=== PATIENT | male | born 1990 | race Hispanic/Latino ===

== ENCOUNTER 2020-05-12 11:03 | Day surgery (SDC) | payer OTHER ==
[~2020-05-12 11:03] MED LIST: CELECOXIB 200 MG CAP PO NR; GABAPENTIN 300 MG CAP PO NR; LACTATED RINGERS 1,000 ML IV SCH; MAGNESIUM OXIDE 400 MG TAB PO SCH; MIDAZOLAM 2 MG/2 ML INJ IV NR
--- NOTE | 2020-05-12 11:49 | Anesthesia Day of Surgery ---
Anesthesia Day of Surgery - Day of Surgery Patient Examined: Yes Patient H&P Reviewed: Yes Patient is NPO: Yes
--- NOTE | 2020-05-12 11:49 | Anesthesia Consultation ---
Anesthesia Consult and Med Hx Date of service: 05/12/20 - Airway Anesthetic Teeth Evaluation: Good ROM Head & Neck: Adequate Mental/Hyoid Distance: Adequate Mallampati Class: Class III Intubation Access Assessment: Possibly Difficult - Pulmonary Exam CTA: Yes - Cardiac Exam Cardiac Exam: RRR - Pre-Operative Health Status ASA Pre-Surgery Classification: ASA1 Proposed Anesthetic Plan: General - Pulmonary Hx Respiratory Symptoms: No Hx Sleep Apnea: No (FLOR PRE SCREEN LOW RISK) - Cardiovascular System Hx Hypertension: No - Central Nervous System CVA: No Hx Psychiatric Problems: Yes (anxiety/depression) - Gastrointestinal Hx Gastroesophageal Reflux Disease: No - Endocrine Hx Renal Disease: No Hx Liver Disease: No Hx Insulin Dependent Diabetes: No Hx Non-Insulin Dependent Diabetes: No Hx Thyroid Disease: No - Other Systems Hx Obesity: No - Additional Comments Anesthesia Medical History Comments: No hx anesthetic complications.
[2020-05-12] MEDS ORDERED: ceFAZolin/STERILE WATER 2 GM/20 ML SYRINGE IV NR (12:08)
[2020-05-12] MEDS ORDERED: ONDANSETRON 4 MG/2 ML INJ ONE (12:16)
[2020-05-12] MEDS ORDERED: propofoL 200 MG/20 ML VIAL IV ONE (12:16)
[2020-05-12] MEDS ORDERED: GLYCOPYRROLATE 0.4 MG/2 ML INJ ONE (12:16)
[2020-05-12] MEDS ORDERED: dexAMETHasone 20 MG/5 ML VIAL ONE (12:16)
[2020-05-12] MEDS ORDERED: ePHEDrine SULFATE 50 MG/1 ML INJ ONE (12:16)
[2020-05-12] MEDS ORDERED: HYDROmorphone 1 MG/1 ML INJ ONE ×2 (12:16→13:52)
[2020-05-12] MEDS ORDERED: PHENYLEPHRINE/NS 1,000 MCG/10 ML SYRINGE (OR USE) IV ONE (12:16)
[2020-05-12] MEDS ORDERED: LIDOCAINE MPF (2%) 20 MG/1 ML VIAL 5 ML ONE (12:16)
[2020-05-12] MEDS ORDERED: NEOMY 40 MG/POLYMYXIN B 200,000 UNITS/ML (GU) AMPULE IR ONE ×2 (13:03→13:22)
[2020-05-12] MEDS ORDERED: LIDOCAINE (1%) 10 MG/1 ML VIAL 20 ML MDV ONE (13:03)
[2020-05-12] MEDS ORDERED: BACITRACIN ZINC OINT 28.4 GM TP ONE (13:03)
[2020-05-12] MEDS ORDERED: BUPIVACAINE/PF (0.25%) 2.5 MG/ML 30 ML VIAL INFILTRATI ONE (13:03)
[2020-05-12] MEDS ORDERED: SODIUM CHLORIDE 0.9% IRR 1,500 ML BOTTLE IR ONE (13:23)
[2020-05-12] MEDS: HYDROmorphone 1 MG/1 ML INJ IV PRN ×2 (14:50→15:01)
--- NOTE | 2020-05-12 14:54 | Post Operative Note ---
Date of procedure: 05/12/20 Pre-op diagnosis: left testicular mass Post-op diagnosis: same Findings: mass Procedure: left radical orch Anesthesia: GETA Surgeon: MARCI CAIN Estimated blood loss: minimal Pathology: list (left rad orch) Specimen disposition: to lab Condition: stable Disposition: PACU
--- NOTE | 2020-05-12 14:55 | Discharge Summary ---
Short Stay Discharge Plan Activity: other (no straining ) Weight Bearing Status: Full Weight Bearing Diet: regular Wound: open to air, keep clean and dry Special Instructions: other (ice in rr ) Follow up with: DAVEY PIERSON JR., MD [Primary Care Provider] - 7 Days MARCI CAIN MD [Staff Physician] - 7 Days Forms: Outpatient Surgery DC Inst.
--- NOTE | 2020-05-12 15:23 | Operative Report ---
PREOPERATIVE DIAGNOSIS: Mass, left testicle with the testicle totally atrophied with a huge cystic mass within it. POSTOPERATIVE DIAGNOSIS: Mass, left testicle with the testicle totally atrophied with a huge cystic mass within it. PROCEDURE: Left radical orchiectomy. SURGEON: Dr. Connolly. ANESTHESIA: General. FINDINGS: This is a gentleman who presents with a large left enlarging mass, left testicle. His markers were okay, but it looks like the central aspect of the testis was replaced by a cystic mass. It may just be cystic changes. He is 30. He now presents for surgery. DESCRIPTION OF PROCEDURE: The patient was brought to the outpatient operating table. Following induction of anesthesia, placed in the supine position, prepped and draped in usual sterile fashion. An oblique incision made over the left groin and carried down to the external oblique aponeurosis. The external ring was identified and it was opened. The cord was dissected free and held with a Cokato drain. The cord was triply ligated at the level of the internal ring with silk and Vicryl sutures and ties. The cord was then grasped and the testis was delivered within the tunica. This was dissected free and any small vessels from the gubernaculum on the inferior aspect of the testis was tied with Vicryl. Hemostasis was excellent. The fascia was approximated with 2-0 Vicryl, superficial fascia with 3-0 Vicryl and skin with clips after we placed a testicular prosthesis. This is a 20 mL large prosthesis that was placed with a 5-0 Prolene at the dependent portion of the scrotum. We made sure not to buttonhole the skin. This was placed and then the rest of the closure was accomplished as above. Estimated blood loss less than 5 mL. There were no significant issues. The wound was irrigated throughout the procedure with irrigation. He was brought to recovery room in stable condition. JOB# [id number] CRISTIANA/RAINA
[2020-05-12 15:30] VITALS: BP 117/70
--- NOTE | 2020-05-12 15:49 | Post Anesthesia Evaluation ---
- Post Anesthesia Evaluation Patient Participated: Yes Airway Patent: Yes Stable Respiratory Function: Yes Nausea/Vomiting: No Temp > 96.8F: Yes Pain Manageable: Yes Adequeate Hydration: Yes Anesthesia Complications: No
== END 2020-05-12 15:58 | disposition home or self-care (01) ==
LOC: OR 11:03
PROVIDERS: ATTEND Urology
DX: N50.89 Other specified disorders of the male genital organs (principal); N50.0 Atrophy of testis; Z79.899 Other long term (current) drug therapy; Z87.891 Personal history of nicotine dependence; Z98.890 Other specified postprocedural states; K21.9 Gastro-esophageal reflux disease without esophagitis; Z87.440 Personal history of urinary (tract) infections; F32.9 Major depressive disorder, single episode, unspecified; F41.9 Anxiety disorder, unspecified; Z72.89 Other problems related to lifestyle
CPT/HCPCS: 54530; 88302; J1100; J1170; J2250; J2370; J2405; J2704; J7120

== ENCOUNTER 2021-03-09 18:55 | Emergency (ER) | payer SELFPAY ==
[2021-03-09 20:49] VITALS: BP 120/76
--- NOTE | 2021-03-09 20:58 | Emergency Department Report ---
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 Ports no fever, chills, sweats reports no chest pain palpitation reports no nausea vomiting. Pain is worse with palpation and range of motion. Reports no rash. Reports no suspicion of an STD but wanted further evaluation to make sure that there were no issues with his testicle MD Complaint: testicle pain, testicle swelling -: Gradual, days(s) (2) Location: right testicle Radiation: none Quality: dull Consistency: constant Improves with: none Worsens with: none - Related Data Home Medications Medication Instructions Recorded Confirmed Last Taken Xanax TAB 0.12 mg PO BID 05/05/20 05/12/20 05/11/20 12:00 Zoloft 25 mg PO DAILY 05/05/20 05/12/20 05/11/20 12:00 Allergies Allergy/AdvReac Type Severity Reaction Status Date / Time No Known Allergies Allergy Verified 05/06/20 11:15 ED Review of Systems ROS: Stated complaint: GROIN PAIN Other details as noted in HPI Comment: All other systems reviewed and negative ED Past Medical Hx - Past Medical History Previous Medical History?: Yes Hx Hypertension: No Hx Diabetes: No Hx GERD: Yes (OCC.) Hx Liver Disease: No Hx Renal Disease: No Hx Sickle Cell Disease: No Hx Asthma: No Hx COPD: No Hx Tuberculosis: No Hx HIV: No - Surgical History Past Surgical History?: Yes Hx Appendectomy: Yes Additional Surgical History: testicular - Social History Smoking Status: Former Smoker Substance Use Type: Alcohol, Marijuana - Medications Home Medications: Home Medications Medication Instructions Recorded Confirmed Last Taken Type Xanax TAB 0.12 mg PO BID 05/05/20 05/12/20 05/11/20 12:00 History Zoloft 25 mg PO DAILY 05/05/20 05/12/20 05/11/20 12:00 History ED Physical Exam - General Limitations: No Limitations General appearance: alert, in no apparent distress - Head Head exam: Present: atraumatic, normocephalic - Eye Eye exam: Present: normal appearance - ENT ENT exam: Present: mucous membranes moist - Neck Neck exam: Present: normal inspection - Respiratory Respiratory exam: Present: normal lung sounds bilaterally. Absent: respiratory distress - Cardiovascular Cardiovascular Exam: Present: regular rate, normal rhythm. Absent: systolic murmur, diastolic murmur, rubs, gallop - GI/Abdominal GI/Abdominal exam: Present: soft, normal bowel sounds - Rectal Rectal exam: Present: deferred - Extremities Exam Extremities exam: Present: normal inspection - Back Exam Back exam: Present: normal inspection - Neurological Exam Neurological exam: Present: alert, oriented X3 - Psychiatric Psychiatric exam: Present: normal affect, normal mood - Skin Skin exam: Present: warm, dry, intact, normal color. Absent: rash ED Course Vital Signs 03/09/21 20:48 Temperature 98.3 F Pulse Rate 80 Respiratory 18 Rate Blood Pressure 120/76 O2 Sat by Pulse 99 Oximetry ED Medical Decision Making - Lab Data Result diagrams: 03/09/21 21:09 03/09/21 21:09 Critical care attestation.: If time is entered above; I have spent that time in minutes in the direct care of this critically ill patient, excluding procedure time. ED Disposition Clinical Impression: Testicular pain, right Disposition: Z-07 ELOPED Is pt being admited?: No Does the pt Need Aspirin: No Condition: Undetermined Referrals: PRIMARY CARE, [Primary Care Provider] - 3-5 Days
[2021-03-09 21:25] LABS: Basophils % (Auto) 0.4 % (0.0-1.8); Eosinophils # (Auto) 0.3 K/mm3 (0.0-0.4); Eosinophils % (Auto) 4.4 % (0.0-4.3); Lymphocytes # (Auto) 1.8 K/mm3 (1.2-5.4); Lymphocytes % (Auto) 24.3 % (13.4-35.0); Mean Corpuscular HGB Conc 36 % (32-34); Mean Corpuscular Volume 89 fl (84-94); Monocytes # (Auto) 0.6 K/mm3 (0.0-0.8); Platelet Count 278 K/mm3 (140-440); Red Blood Count 4.64 M/mm3 (3.65-5.03); Red Cell Distribution Width 12.2 % (13.2-15.2)
[2021-03-09 21:28] LABS: Hematocrit 41.5 % (35.5-45.6)
[2021-03-09 21:47] LABS: BUN/Creatinine Ratio 14; Blood Urea Nitrogen 11 mg/dL (9-20); Calcium 9.5 mg/dL (8.4-10.2); Hemolysis Index 8
--- NOTE | 2021-03-09 23:55 | Ultrasound Report ---
SCROTAL ULTRASOUND INDICATION / CLINICAL INFORMATION: Right testicular pain and swelling. History of left testicular cancer. COMPARISON: None available. FINDINGS: The left testicle is surgically absent. There is a left testicular implant without complication. The right testicle measures 3.9 x 3.3 x 2.1 cm and demonstrates a normal echo pattern without focal l esion. There is normal blood flow to the right testicle on Doppler exam. The right epididymis is norm al in appearance. There is no evidence of a hydrocele or other abnormality. IMPRESSION: 1. No evidence of right testicular mass or torsion. 2. Prior left orchiectomy with a testicular implant present. Signer Name: Ramesh Wei MD Signed: 03/09/2021 11:50 PM Workstation Name: [id number]
== END 2021-03-09 22:50 | disposition left against medical advice (07) ==
LOC: ED 18:55
DX: N50.811 Right testicular pain (principal); K21.9 Gastro-esophageal reflux disease without esophagitis; F12.10 Cannabis abuse, uncomplicated; Z87.891 Personal history of nicotine dependence; Z79.899 Other long term (current) drug therapy
CPT/HCPCS: 36415; 80048; 85025; 93975; 99283

== ENCOUNTER 2021-03-10 05:12 | Emergency (ER) | payer BC ==
[2021-03-10 05:35] VITALS: BP 121/86
--- NOTE | 2021-03-10 06:36 | Emergency Department Report ---
ED Male HPI - General Chief complaint: Urogenital-Male Stated complaint: GROIN PAIN Source: patient Mode of arrival: Ambulatory Limitations: No Limitations - History of Present Illness Initial comments: 30-year-old male with past medical history of testicular cancer to his left testicle resulting in an orchiectomy presents emerged department complaining of pain to the right testicle. He was here earlier and he was evaluated by this author where ultrasounds were obtained showing no issues however he did not stay for his results he had eloped. He has returned return to the emergency department complaining of continued discomfort and swelling in in his right testicle and seeking further evaluate evaluation and treatment. Reports no dysuria no hematuria no hematemesis no hematochezia, no diarrhea, no constipation, no traumatic event to the area. Reports no rash, no suspicion of an STD - Related Data Home Medications Medication Instructions Recorded Confirmed Last Taken Xanax TAB 0.12 mg PO BID 05/05/20 05/12/20 05/11/20 12:00 Zoloft 25 mg PO DAILY 05/05/20 05/12/20 05/11/20 12:00 Previous Rx's Medication Instructions Recorded Last Taken Type traMADoL [Ultram] 50 mg PO Q6HR PRN #14 tablet 03/10/21 Unknown Rx Allergies Allergy/AdvReac Type Severity Reaction Status Date / Time No Known Allergies Allergy Verified 05/06/20 11:15 ED Review of Systems ROS: Stated complaint: GROIN PAIN Other details as noted in HPI ED Past Medical Hx - Past Medical History Hx Hypertension: No Hx Diabetes: No Hx GERD: Yes (OCC.) Hx Liver Disease: No Hx Renal Disease: No Hx Sickle Cell Disease: No Hx Asthma: No Hx COPD: No Hx Tuberculosis: No Hx HIV: No - Surgical History Hx Appendectomy: Yes Additional Surgical History: testicular - Social History Smoking Status: Former Smoker Substance Use Type: Alcohol, Marijuana - Medications Home Medications: Home Medications Medication Instructions Recorded Confirmed Last Taken Type Xanax TAB 0.12 mg PO BID 05/05/20 05/12/20 05/11/20 12:00 History Zoloft 25 mg PO DAILY 05/05/20 05/12/20 05/11/20 12:00 History traMADoL [Ultram] 50 mg PO Q6HR PRN #14 tablet 03/10/21 Unknown Rx ED Physical Exam - General Limitations: No Limitations General appearance: alert, in no apparent distress - Head Head exam: Present: atraumatic, normocephalic - Eye Eye exam: Present: normal appearance - ENT ENT exam: Present: mucous membranes moist - Neck Neck exam: Present: normal inspection - Respiratory Respiratory exam: Present: normal lung sounds bilaterally. Absent: respiratory distress - Cardiovascular Cardiovascular Exam: Present: regular rate, normal rhythm. Absent: systolic murmur, diastolic murmur, rubs, gallop - GI/Abdominal GI/Abdominal exam: Present: soft, normal bowel sounds - Rectal Rectal exam: Present: deferred - exam: Present: other (Tenderness to the inguinal region with palpation. No masses are appreciated. No rashes. No urethral discharge there is mild tenderness to the base of the skull with palpation. No discoloration.). Absent: testicular tenderness - Extremities Exam Extremities exam: Present: normal inspection - Back Exam Back exam: Present: normal inspection - Neurological Exam Neurological exam: Present: alert, oriented X3 - Psychiatric Psychiatric exam: Present: normal affect, normal mood - Skin Skin exam: Present: warm, dry, intact, normal color. Absent: rash ED Course Vital Signs 03/10/21 05:16 Temperature 97.9 F Pulse Rate 59 L Respiratory 18 Rate Blood Pressure 121/86 O2 Sat by Pulse 98 Oximetry ED Medical Decision Making - Radiology Data Radiology results: report reviewed [address] [place] [address] Ultrasound Report Signed Patient: GREGORY ESTES JR MR#: [id number] : 1990 Acct:[id number] Age/Sex: 30 / M ADM Date: 03/09/21 Loc: ED Attending Dr: Ordering Physician: BEL VELEZ Date of Service: 03/09/21 Procedure(s): US testicular doppler comp Accession Number(s): [id number] cc: EBL VELEZ SCROTAL ULTRASOUND INDICATION / CLINICAL INFORMATION: Right testicular pain and swelling. History of left testicular cancer. COMPARISON: None available. FINDINGS: The left testicle is surgically absent. There is a left testicular implant without complication. The right testicle measures 3.9 x 3.3 x 2.1 cm and demonstrates a normal echo pattern without focal lesion. There is normal blood flow to the right testicle on Doppler exam. The right epididymis is normal in appearance. There is no evidence of a hydrocele or other abnormality. IMPRESSION: 1. No evidence of right testicular mass or torsion. 2. Prior left orchiectomy with a testicular implant present. Signer Name: Ramesh Wei MD Signed: 03/09/2021 11:50 PM Workstation Name: [id number] Transcribed By: RT Dictated By: Ramesh Wei MD Electronically Authenticated By: Ramesh Wei MD Signed Date/Time: 03/09/212349 DD/ 47 TD/TT: Critical care attestation.: If time is entered above; I have spent that time in minutes in the direct care of this critically ill patient, excluding procedure time. ED Disposition Clinical Impression: Testicular pain, right Disposition: DC- TO HOME OR SELFCARE Is pt being admited?: No Does the pt Need Aspirin: No Condition: Stable Instructions: Testicular Self-Exam Additional Instructions: Please keep your urology appointment with [place] next week and utilize Tylenol and Motrin as needed for any pain that you may have. No evidence of infection is present so this point time we will hold off on any antimicrobial treatment. Prescriptions: traMADoL [Ultram] 50 mg PO Q6HR PRN #14 tablet PRN Reason: Pain Referrals: PRIMARY CAR[facility] [Primary Care Provider] - 3-5 Days [facility] [Provider Group] - 3-5 Days
== END 2021-03-10 06:45 | disposition home or self-care (01) ==
LOC: ED 05:12
DX: N50.811 Right testicular pain (principal); K21.9 Gastro-esophageal reflux disease without esophagitis; Z90.49 Acquired absence of other specified parts of digestive tract; Z98.890 Other specified postprocedural states; F12.10 Cannabis abuse, uncomplicated; Z87.891 Personal history of nicotine dependence; Z79.899 Other long term (current) drug therapy
CPT/HCPCS: 99282